=== PATIENT | male | born 1960 | race Caucasian/White ===

== ENCOUNTER 2017-12-11 09:28 | Outpatient (CLI) | payer OTHER ==
[2017-12-11 10:58] LABS: Hemoglobin 14.6 g/dL (14.0-18.0); Platelet Count 212 thou/uL (130-400); RBC Distribution Width 11.8 % (11.5-14.5); Red Blood Cell (RBC) Count 5.01 mill/uL (4.70-6.10); White Blood Cell (WBC) Count 4.8 thou/uL (4.8-10.8)
== END 2017-12-11 09:29 | disposition home or self-care (01) ==
LOC: LABBT 09:28
PROVIDERS: ATTEND Orthopaedic Surgery
DX: Z01.812 Encounter for preprocedural laboratory examination (principal); R22.41 Localized swelling, mass and lump, right lower limb
CPT/HCPCS: 85027

== ENCOUNTER 2017-12-12 10:49 | Day surgery (SDC) | payer OTHER, BC ==
[2017-12-11 09:45] VITALS: BMI 30.7
[2017-12-12] MEDS ORDERED: PROPOFOL 200 MG/20 ML VIAL ONE (11:11)
[2017-12-12] MEDS ORDERED: Ketorolac Tromethamine 30 MG/ML VIAL ONE (11:11)
[2017-12-12] MEDS ORDERED: Ondansetron PF 4 MG/2 ML Vial ONE (11:11)
[2017-12-12] MEDS ORDERED: Dexamethasone 20 MG/5 ML VIAL ONE (11:11)
[2017-12-12] MEDS ORDERED: Clindamycin/D5W 900 mg/50 ml Premix Bag ONE (12:34)
[2017-12-12] MEDS ORDERED: Fentanyl 100 MCG/2 ML VIAL ONE (13:29)
[2017-12-12] MEDS ORDERED: Bupivacaine HCl 0.5%/Epinephrine 1:200,000/PF 30 ml Vial ONE (13:30)
--- NOTE | 2017-12-12 14:22 | OP ---
DATE OF PROCEDURE: 12/12/2017 PROCEDURE PERFORMED: Removal of soft tissue mass anterior incision. POSTOPERATIVE DIAGNOSIS: Soft tissue mass, likely granuloma tissue with elliptical excision of skin and closure of wound. PROCEDURE: Elliptical excision of skin and mass, closure of wound. STAFF: Fei Carbajal M.D. SALES HUNTER: None. ANESTHESIA: Dr. Atkinson. The patient received an LMA with 18 mL of Marcaine local. ANTIBIOTICS: Clindamycin after culture was taken. The patient had a culture taken as well as soft t issue remnants sent to pathology. ESTIMATED BLOOD LOSS: 15 mL. COMPLICATIONS: None. 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 He presents after a quad repair in 2013. The patient about a month ago had a little rent in the soft tissue anteriorly in his knee, had a beefy red soft tissue plane with a little bit of gross drainage from the wound. No erythema, no swelling. The patient did not take antibiotics. I discussed with him undergoing an excision this week to excise the mass, culture it and send it off for soft tissue. The patient understood the ris ks and benefits of the procedure and elected to proceed. PROCEDURE IN DETAIL: Timeout was performed designating the patient's right lower extremity as the op erative site based on site, consents and markings. After completion of timeout the patient's right l ower extremity was prepped and draped with Betadine. I made a linear incision and ellipsed out the s kin medially and laterally, went down, found the mass. It was difficult to dissect a definitive plan e for the mass. It was part of a beefy granulation tissue within the knee joint. I took the tourniq uet up when the bleeding from the granulation tissue was too great to help with control of bleeding. I cauterized, excised out what appeared to be a mass, went down to the patient's quad, could not fin d any section of the quad, there was a tear in conference with the joint. After I excised them, exci sed what I thought was the granulomatous tissue. I washed, closed with horizontal mattress stitches . I cultured the mass. I then washed. The patient received antibiotics. I let the tourniquet down after 6 minutes, controlled bleeding, washed the joint and placed 3 horizontal mattress stitches. The patient will be discharged home weightbear as tolerated, take aspirin twice a day at home, on his plane ride. The patient is given a prescription for Cleocin as well as hydrocodone. I do not want him to take the Cleocin given his lack of any real infection. I will hold in case he has drainage, h e will have it to be filled. The patient will follow up with me in about 10-14 days.
--- NOTE | 2017-12-18 06:47 | PQF ---
[facility] POST DISCHARGE CLINICAL DOCUMENTATION IMPROVEMENT CLARIFICATION FORM l Todays Date: 12/17/17 l Patients Name RACHANA TERAN l l Admit Date 12/12/17 l Disch Date 12/12/17 Train Starter Name Jaron Arzate Email: [email or web address] Cell: [phone] Present Clinical Indicators - Signs / Symptoms Results and Location in Medical Record [ ] Documentation of: [ ] [ ] Documentation of: [ ] [ ] Documentation of: [ ] [ ] Documentation of: [ ] [ ] Risks [ ] [ ] [ ] Treatment [ ] CASEATING GRANULOMA OF RIGHT KNEE QUERY FOR SIZE OF EXCISED LESION R KNEE WITH MARGINS [ ] [ ] To be completed by Physician: TORRES CHÁVEZ The documentation in this patients record requires clarification to ensure coding compliance and accuracy. Check the appropriate box and include in your discharge summary. [ ] [ ] [ ] [ ] Please check this box if this does not apply to this patient [ ] Unable to determine [ ] Other diagnosis: Review the following information and exercise your independent professional judgment in responding to the clarification. Based upon the clinical findings, risk factors, and treatment, please clarify if you are treating one of the above probable or suspected diagnoses. Physician Signature: Date Time MTDD
== END 2017-12-12 15:37 | disposition home or self-care (01) ==
LOC: SDC 10:49
PROVIDERS: ATTEND Orthopaedic Surgery
PROC: 0JBP0ZZ Excision of Left Lower Leg Subcutaneous Tissue and Fascia, Open Approach (ICD-10-PCS; principal; 2017-12-12)
DX: M25.861 Other specified joint disorders, right knee (principal); Z79.82 Long term (current) use of aspirin; Z79.899 Other long term (current) drug therapy; Z88.0 Allergy status to penicillin; Z91.018 Allergy to other foods; Z98.890 Other specified postprocedural states
CPT/HCPCS: 87070; 87205; 88305; 88312; J0670; J1100; J1885; J2405; J2704; J3010; J3490

== ENCOUNTER 2019-07-01 07:56 | Outpatient (CLI) | payer OTHER, BC ==
--- NOTE | 2019-07-01 08:27 | RAD ---
RADIOGRAPH LEFT KNEE 3 VIEWS: DATE: 07/01/2019 HISTORY: 58-year-old male status post knee surgery 3 months ago FINDINGS: Resurfacing changes of articular surfaces of distal femur, patella, and tibial plateau. Metallic pros theses cover the resurfaced articular surfaces of distal femur and tibial plateau. No evidence of hardware loosening. There is significant anterior soft tissue swelling and edema from the distal thig h to the lower knee. The edema is inseparable from what may be a joint effusion. IMPRESSION: 1. Status post total left knee replacement arthroplasty. 2. Anterior knee and distal thigh soft tissue edema and probable joint effusion.
== END 2019-07-01 07:57 | disposition home or self-care (01) ==
LOC: BICRAD 07:56
DX: Z47.1 Aftercare following joint replacement surgery (principal); Z96.652 Presence of left artificial knee joint; M79.89 Other specified soft tissue disorders

== ENCOUNTER 2023-04-05 08:17 | Outpatient (CLI) | payer BC | END 2023-04-05 08:18 | disposition home or self-care (01) | LOC: BICRAD 08:17 | PROVIDERS: ATTEND Orthopaedic Surgery | DX: Z47.1 Aftercare following joint replacement surgery (principal); Z96.612 Presence of left artificial shoulder joint ==